=== PATIENT | female | born 1995 | race Caucasian/White ===

== ENCOUNTER 2016-11-19 23:03 | Emergency (ER) | payer SELFPAY ==
[~2016-11-19] VITALS: Ht 157.5 cm; Wt 79.0 kg
[~2016-11-19 23:03] MED LIST: ACET1TAB40 PO; METO10TA96 PO; OMEP20CA16 PO; PANT40TA3 PO; RANI150T9 PO
[2016-11-19 23:10] VITALS: Ht 157.5 cm; Wt 79.0 kg
== END 2016-11-20 00:52 | disposition left against medical advice (07) ==
LOC: FTE 23:03 → E/R 11-20 00:52
DX: Z53.21 Procedure and treatment not carried out due to patient leaving prior to being seen by health care provider (principal)